=== PATIENT | female | born 1995 | race Caucasian/White ===

== ENCOUNTER 2018-11-08 13:15 | Emergency (ER) | payer OTHER ==
[2018-11-08] MEDS ORDERED: METOCLOPRAMIDE HCL INJ/PF 10 MG/2 ML SDV IV ONE (13:40)
[2018-11-08] MEDS ORDERED: DIPHENHYDRAMINE HCL 50 MG/ML VIAL IV ONE (13:40)
--- NOTE | 2018-11-08 13:42 | ER Document Report ---
ED Medical Screen (RME) - General Chief Complaint: Nausea/Vomiting Stated Complaint: VOMITING Time Seen by Provider: 11/08/18 13:34 Mode of Arrival: Ambulatory Information source: Patient Notes: 23-year-old female presents to ED for complaint of nausea or vomiting since Monday. She states she is 7 weeks at about 7:30 AM Monday she started vomiting. States she went to [facility] they gave her some Zofran crackers and sent her home with prescription for B6 and Unisom. She states none of this is stopping her vomiting and her she has not been able to eat anything since Monday. She states she continues to vomit and is becoming more dehydrated. She states she came to the emergency room because she went to the [facility] and they told her to come over and get fluids. Patient is alert oriented respirations regular and unlabored speaking in full sentences walks with a even steady gait. I have greeted and performed a rapid initial assessment of this patient. A comprehensive ED assessment and evaluation of the patient, analysis of test results and completion of medical decision making process will be conducted by an additional ED providers. Dictation of this chart was performed using voice recognition software; therefore, there may be some unintended grammatical errors. TRAVEL OUTSIDE OF THE [place] IN LAST 30 DAYS: No - Related Data Allergies/Adverse Reactions: No Known Allergies Allergy (Verified 11/08/18 13:15) Past Medical History Traumatic Medical History: Reports: Hx Traumatic Brain Injury - Immunizations Immunizations up to date: Yes Hx Diphtheria, Pertussis, Tetanus Vaccination: Yes Physical Exam - Vital signs Vitals: Temp Pulse Resp BP Pulse Ox 98.8 F 89 18 126/65 H 97 11/08/18 13:18 11/08/18 13:18 11/08/18 13:18 11/08/18 13:18 11/08/18 13:18 Course - Vital Signs Vital signs: Temp Pulse Resp BP Pulse Ox 98.8 F 89 18 126/65 H 97 11/08/18 13:18 11/08/18 13:18 11/08/18 13:18 11/08/18 13:18 11/08/18 13:18
[2018-11-08] MEDS: NORMAL SALINE 1000 ML 1,000 ML IV PRN ×2 (13:57→14:43)
[2018-11-08 14:26] LABS: APPEARANCE,URINE CLOUDY; BILIRUBIN,URINE NEGATIVE (NEGATIVE); COLOR,URINE AMBER; GLUCOSE, URINE NEGATIVE (NEGATIVE); KETONES,URINE 80 mg/dL (NEGATIVE); LEUKOCYTE ESTERASE,URINE TRACE (NEGATIVE); NITRITE,URINE NEGATIVE (NEGATIVE); PROTEIN,URINE 100 mg/dL (NEGATIVE); URINE SPECIFIC GRAVITY 1.029
[2018-11-08 14:29] LABS: ADD MANUAL MICROSCOPIC YES
[2018-11-08 14:32] LABS: ABSOLUTE LYMPHOCYTES (AUTO) 1.3 10^3/uL (0.5-4.7); ABSOLUTE MONOCYTES (AUTO) 0.5 10^3/uL (0.1-1.4); ABSOLUTE NEUT (AUTO) 6.4 10^3/uL (1.7-8.2); BASOPHILS % (AUTO) 0.2 % (0-2); EOSINOPHILS % (AUTO) 0.4 % (0-6); HEMATOCRIT 39.7 % (36.0-47.0); HEMOGLOBIN 13.6 g/dL (12.0-15.5); LYMPHOCYTES % (AUTO) 15.7 % (13-45); MEAN CORPUSCULAR HEMOGLOBIN 29.2 pg (27.0-33.4); MEAN CORPUSCULAR HGB CONC 34.4 g/dL (32.0-36.0); MEAN CORPUSCULAR VOLUME 85 fl (80-97); MONOCYTES % (AUTO) 5.5 % (3-13); PLATELET COUNT 220 10^3/uL (150-450); RED BLOOD COUNT 4.68 10^6/uL (3.72-5.28); RED CELL DISTRIBUTION WIDTH 12.4 % (11.5-14.0); SEGMENTED NEUTROPHILS % (AUTO) 78.2 % (42-78); TOTAL CELLS COUNTED % (AUTO) 100 %; WHITE BLOOD COUNT 8.2 10^3/uL (4.0-10.5)
[2018-11-08 14:37] LABS: BACTERIA,URINE 3+ /HPF
[2018-11-08 14:43] LABS: ALBUMIN 4.7 g/dL (3.5-5.0); ALKALINE PHOSPHATASE 56 U/L (38-126); ANION GAP 14 (5-19); ASPARTATE AMINO TRANSFERASE 22 U/L (14-36); BILIRUBIN,DIRECT 0.1 mg/dL (0.0-0.4); BILIRUBIN,TOTAL 0.5 mg/dL (0.2-1.3); BLOOD UREA NITROGEN 13 mg/dL (7-20); CALCIUM 9.8 mg/dL (8.4-10.2); CARBON DIOXIDE 27 mmol/L (22-30); CHLORIDE 98 mmol/L (98-107); GLUCOSE 93 mg/dL (75-110); POTASSIUM 3.8 mmol/L (3.6-5.0); TOTAL PROTEIN 7.4 g/dL (6.3-8.2)
--- NOTE | 2018-11-08 15:17 | RADIOLOGY REPORT (SQ) ---
EXAM DESCRIPTION: U/S OB TRANSVAG W/DOPPLER COMPLETED DATE/TIME: 11/08/2018 3:03 pm REASON FOR STUDY: early preg NV cramping COMPARISON: None. TECHNIQUE: Transvaginal static and realtime grayscale images acquired of the pelvis. Additional guru cted spectral and color Doppler images recorded. All images stored on PACs. bHCG: Pending. CLINICAL DATES: 7 weeks, 0 days LIMITATIONS: None. FINDINGS: FETUS: Single Living intrauterine . ULTRASOUND EGA: 6 weeks, 6 days ULTRASOUND ALLIE: 06/28/2019 EFW: Not applicable less than 20 weeks. CRL: 0.85 cm FHR: 130 beats per minute. UTERUS: No masses. No anomalies. CERVICAL LENGTH: 1.9 cm Closed. RIGHT ADNEXA: Normal ovary with normal vascular flow. Probable 2.1 cm corpus luteum of the right ova ry. Multiple small follicles. No adnexal free fluid. No adnexal masses. LEFT ADNEXA: Nonvisualized. FREE FLUID: None. OTHER: No other significant finding. IMPRESSION: Single intrauterine at sonographic gestational age of 6 weeks, 6 days. ALLIE . heart rate 130 bpm. Trimester of : First trimester - 0 to 13 weeks. TECHNICAL DOCUMENTATION: JOB ID: [id number] [employer]- All Rights Reserved rev Reading location - IP/workstation name: [email or web address]
--- NOTE | 2018-11-08 15:23 | ER Document Report ---
ED GI/ - General Chief Complaint: Nausea/Vomiting Stated Complaint: VOMITING Time Seen by Provider: 11/08/18 13:34 Primary Care Provider: BEATRIZ WICK MD [Primary Care Provider] - Follow up tomorrow Mode of Arrival: Ambulatory Information source: Patient Notes: Patient states that she is 7 weeks and has had nausea and vomiting for the past 3 days. Patient states she vomited 6 times today. Patient does report some cramping yesterday after vomiting although denies any abdominal cramping today. Patient denies any vaginal bleeding or discharge. TRAVEL OUTSIDE OF THE [place] IN LAST 30 DAYS: No - HPI Patient complains to provider of: , Vomiting. No: Abdominal pain Onset: Other - 3 days Timing/Duration: Persistent Quality of pain: No pain Pain Level: Denies Context: Sexual history: Active Associated symptoms: Nausea, Vomiting. denies: Diarrhea, Dizzy, Urinary hesitancy, Urinary frequency, Urinary retention, Urinary urgency, Vaginal discharge Exacerbated by: Denies Relieved by: Denies Similar symptoms previously: Yes Recently seen / treated by doctor: Yes - Related Data Allergies/Adverse Reactions: No Known Allergies Allergy (Verified 11/08/18 13:15) Past Medical History - General Information source: Patient Last Menstrual Period: 7 weeks - Social History Smoking Status: Former Smoker Frequency of alcohol use: None Drug Abuse: None Occupation: None Lives with: Spouse/Significant other Family History: CVA, DM, Hyperlipidemia, Hypertension. denies: Arthritis, CAD, COPD, Malignancy, Thyroid Disfunction Patient has suicidal ideation: No Patient has homicidal ideation: No - Medical History Medical History: Negative Renal/ Medical History: Denies: Hx Peritoneal Dialysis Traumatic Medical History: Reports: Hx Traumatic Brain Injury Surgical Hx: Negative - Immunizations Immunizations up to date: Yes Hx Diphtheria, Pertussis, Tetanus Vaccination: Yes Review of Systems - Review of Systems Constitutional: No symptoms reported. denies: Fever, Recent illness EENT: No symptoms reported Cardiovascular: No symptoms reported Respiratory: No symptoms reported. denies: Cough, Short of breath Gastrointestinal: Nausea, Vomiting. denies: Abdominal pain, Diarrhea Genitourinary: No symptoms reported. denies: Dysuria, Flank pain Female Genitourinary: . denies: Vaginal discharge, Vaginal bleeding Musculoskeletal: No symptoms reported. denies: Back pain Skin: No symptoms reported Hematologic/Lymphatic: No symptoms reported Neurological/Psychological: No symptoms reported Physical Exam - Vital signs Vitals: Temp Pulse Resp BP Pulse Ox 98.8 F 89 18 126/65 H 97 11/08/18 13:18 11/08/18 13:18 11/08/18 13:18 11/08/18 13:18 11/08/18 13:18 - General General appearance: Appears well, Alert In distress: None - HEENT Head: Normocephalic, Atraumatic Eyes: Normal Nasal: Normal Mouth/Lips: Normal Neck: Normal, Supple - Respiratory Respiratory status: No respiratory distress Chest status: Nontender Breath sounds: Normal. No: Rales, Rhonchi, Stridor, Wheezing Chest palpation: Normal - Cardiovascular Rhythm: Regular. No: Tachycardia Heart sounds: S1 appreciated, S2 appreciated Murmur: No - Abdominal Inspection: Normal Distension: No distension Bowel sounds: Normal Tenderness: Nontender. No: Tender Organomegaly: No organomegaly - Back Back: Normal, Nontender. No: CVA tenderness, Vertebra tenderness - Extremities General upper extremity: Normal inspection, Nontender, Normal strength General lower extremity: Normal inspection, Nontender, Normal strength - Neurological Neuro grossly intact: Yes Cognition: Normal [place] Coma Scale Eye Opening: Spontaneous Jonathan Coma Scale Verbal: Oriented [place] Coma Scale Motor: Obeys Commands Jonathan Coma Scale Total: 15 - Psychological Associated symptoms: Normal affect, Normal mood - Skin Skin Temperature: Warm Skin Moisture: Dry Skin Color: Normal Course - Vital Signs Vital signs: Temp Pulse Resp BP Pulse Ox 98.7 F 87 16 102/60 100 11/08/18 16:13 11/08/18 16:13 11/08/18 16:13 11/08/18 16:13 11/08/18 16:13 - Laboratory Result Diagrams: 11/08/18 14:05 11/08/18 14:05 Laboratory results interpreted by me: 11/08/18 11/08/18 11/08/18 14:05 14:05 14:05 Seg Neutrophils % 78.2 H Creatinine 0.50 L Beta HCG, Quant 23715.00 H Urine Protein 100 H Urine Ketones 80 H Urine Urobilinogen 2.0 H Ur Leukocyte Esterase TRACE H Urine Ascorbic Acid 40 H 11/08/18 17:22 Labs- Entire Visit 11/08/18 11/08/18 11/08/18 14:05 14:05 14:05 WBC 8.2 RBC 4.68 Hgb 13.6 Hct 39.7 MCV 85 MCH 29.2 MCHC 34.4 RDW 12.4 Plt Count 220 Seg Neutrophils % 78.2 H Lymphocytes % 15.7 Monocytes % 5.5 Eosinophils % 0.4 Basophils % 0.2 Absolute Neutrophils 6.4 Absolute Lymphocytes 1.3 Absolute Monocytes 0.5 Absolute Eosinophils 0.0 Absolute Basophils 0.0 Sodium 139.2 Potassium 3.8 Chloride 98 Carbon Dioxide 27 Anion Gap 14 BUN 13 Creatinine 0.50 L Est GFR ( Amer) > 60 Est GFR (Non-Af Amer) > 60 Glucose 93 Calcium 9.8 Total Bilirubin 0.5 Direct Bilirubin 0.1 Neonat Total Bilirubin Not Reportable Neonat Direct Bilirubin Not Reportable Neonat Indirect Bili Not Reportable AST 22 ALT 17 Alkaline Phosphatase 56 Total Protein 7.4 Albumin 4.7 Beta HCG, Quant 60676.00 H Total Beta HCG POSITIVE Urine Color JENNA Urine Appearance CLOUDY Urine pH 6.0 Ur Specific Fisher 1.029 Urine Protein 100 H Urine Glucose (UA) NEGATIVE Urine Ketones 80 H Urine Blood NEGATIVE Urine Nitrite NEGATIVE Urine Bilirubin NEGATIVE Urine Urobilinogen 2.0 H Ur Leukocyte Esterase TRACE H Urine RBC 1-5 Urine WBC 1-5 Ur Squamous Epith Cells MANY Urine Bacteria 3+ Urine Mucus 3+ Urine Ascorbic Acid 40 H - Diagnostic Test Radiology reviewed: Reports reviewed Discharge - Discharge Clinical Impression: Vomiting during , Dehydration UTI (urinary tract infection) Qualifiers: Urinary tract infection type: site unspecified Hematuria presence: without hematuria Qualified Code(s): N39.0 - Urinary tract infection, site not specified Condition: Stable Disposition: HOME, SELF-CARE Instructions: Cephalexin ([facility]), Intravenous (IV) Fluids ([facility]), Urinary Tract Infection ([facility]), Vomiting ([facility]) Additional Instructions: Return immediately for any new or worsening symptoms Followup with your primary care provider, call tomorrow to make a followup appointment Urine culture is pending, we will call if you need any different treatment Prescriptions: Cephalexin Monohydrate [Keflex 500 mg Capsule] 500 mg PO BID 5 Days capsule Referrals: BEATRIZ WICK MD [Primary Care Provider] - Follow up tomorrow
[2018-11-08 16:18] VITALS: BP 102/60
== END 2018-11-08 16:18 | disposition home or self-care (01) ==
LOC: ER 13:15
DX: O23.41 Unspecified infection of urinary tract in pregnancy, first trimester (principal); O21.9 Vomiting of pregnancy, unspecified; O26.891 Other specified pregnancy related conditions, first trimester; E86.0 Dehydration; R10.9 Unspecified abdominal pain; Z3A.01 Less than 8 weeks gestation of pregnancy; Z87.891 Personal history of nicotine dependence
CPT/HCPCS: 99284; 96361; 96374; 96375; 36415; 87086; 84702; 85025; 87088; 80053; 81001; 76817; 93976; J1200; J2765; J7030

== ENCOUNTER 2018-11-09 05:02 | Emergency (ER) | payer OTHER ==
[2018-11-09] MEDS ORDERED: ONDANSETRON HCL INJ/PF 4 MG/2 ML SDV IV ONE (05:50)
--- NOTE | 2018-11-09 05:54 | ER Document Report ---
ED Medical Screen (RME) - General Chief Complaint: Vomiting Stated Complaint: VOMITING,BACKACHE Time Seen by Provider: 11/09/18 05:42 Primary Care Provider: BEATRIZ WICK MD [Primary Care Provider] - Follow up as needed Notes: 23-year-old female who is a G1, P0 at 7 weeks presents the emergency department complaining of vomiting for the past week. Patient states that she has been having nonstop vomiting anytime she tries to eat or drink anything. States that she was treated with antinausea medication when she was here yesterday which worked temporarily and then wore off. Patient states that takin g Unisom and B6 did not help. Patient states that she has been vomiting since a few hours after she left this hospital yesterday. Admits mild lower abdominal cramping, denies vaginal discharge or vaginal bleeding. States she was diagnosed with urinary tract infection yesterday and prescribed Keflex. Denies any fevers. TRAVEL OUTSIDE OF THE [place] IN LAST 30 DAYS: No - Related Data Allergies/Adverse Reactions: No Known Allergies Allergy (Verified 11/09/18 05:04) Past Medical History Renal/ Medical History: Denies: Hx Peritoneal Dialysis Traumatic Medical History: Reports: Hx Traumatic Brain Injury - Immunizations Immunizations up to date: Yes Hx Diphtheria, Pertussis, Tetanus Vaccination: Yes Physical Exam - Vital signs Vitals: Temp Pulse Resp BP Pulse Ox 98.5 F 106 H 18 124/69 99 11/09/18 05:06 11/09/18 05:06 11/09/18 05:06 11/09/18 05:06 11/09/18 05:06 - Notes Notes: GENERAL: Alert, interacts well. No acute distress. HEAD: Normocephalic, atraumatic EYES: Pupils equal, round and reactive to light, extraocular movements intact. ENT: Oral mucosa moist, tongue midline. NECK: Full range of motion, supple, trachea midline. Trapezius muscles tender palpation bilaterally. LUNGS: Clear to auscultation bilaterally, no wheezes, rales or rhonchi, no respiratory distress. HEART: Tachycardic rate and rhythm, no murmurs, gallops, rubs. ABDOMEN: Soft, nontender, nondistended, bowel sounds present in all 4 quadrants. EXTREMITIES: Moves all 4 extremities spontaneously. No cyanosis. NEUROLOGICAL: Alert and oriented x3, normal speech. PSYCH: Normal mood, normal affect. SKIN: Warm, Dry, normal turgor, no rashes or lesions noted. Course - Vital Signs Vital signs: Temp Pulse Resp BP Pulse Ox 98.5 F 106 H 18 124/69 99 11/09/18 05:06 11/09/18 05:06 11/09/18 05:06 11/09/18 05:06 11/09/18 05:06 Doctor's Discharge - Discharge Referrals: BEATRIZ WICK MD [Primary Care Provider] - Follow up as needed
[2018-11-09] MEDS: RINGERS SOLUTION,LACTATED 1,000 ML IV PRN ×2 (06:13→07:26)
[2018-11-09 06:29] LABS: ABSOLUTE LYMPHOCYTES (AUTO) 1.3 10^3/uL (0.5-4.7); ABSOLUTE MONOCYTES (AUTO) 0.6 10^3/uL (0.1-1.4); ABSOLUTE NEUT (AUTO) 8.5 10^3/uL (1.7-8.2); BASOPHILS % (AUTO) 0.2 % (0-2); EOSINOPHILS % (AUTO) 0.4 % (0-6); HEMATOCRIT 36.5 % (36.0-47.0); HEMOGLOBIN 12.7 g/dL (12.0-15.5); LYMPHOCYTES % (AUTO) 12.7 % (13-45); MEAN CORPUSCULAR HEMOGLOBIN 29.4 pg (27.0-33.4); MEAN CORPUSCULAR HGB CONC 34.9 g/dL (32.0-36.0); MEAN CORPUSCULAR VOLUME 84 fl (80-97); MONOCYTES % (AUTO) 5.9 % (3-13); PLATELET COUNT 199 10^3/uL (150-450); RED BLOOD COUNT 4.33 10^6/uL (3.72-5.28); RED CELL DISTRIBUTION WIDTH 12.3 % (11.5-14.0); SEGMENTED NEUTROPHILS % (AUTO) 80.8 % (42-78); TOTAL CELLS COUNTED % (AUTO) 100 %; WHITE BLOOD COUNT 10.5 10^3/uL (4.0-10.5)
[2018-11-09 06:39] LABS: APPEARANCE,URINE SLIGHTLY-CLOUDY; BILIRUBIN,URINE NEGATIVE (NEGATIVE); COLOR,URINE YELLOW; GLUCOSE, URINE NEGATIVE (NEGATIVE); KETONES,URINE 80 mg/dL (NEGATIVE); LEUKOCYTE ESTERASE,URINE NEGATIVE (NEGATIVE); NITRITE,URINE NEGATIVE (NEGATIVE); PROTEIN,URINE NEGATIVE (NEGATIVE); URINE SPECIFIC GRAVITY 1.016; UROBILINOGEN,URINE NEGATIVE mg/dL (<2.0)
[2018-11-09 06:40] LABS: ALBUMIN 4.1 g/dL (3.5-5.0); ALKALINE PHOSPHATASE 53 U/L (38-126); ANION GAP 9 (5-19); ASPARTATE AMINO TRANSFERASE 17 U/L (14-36); BILIRUBIN,DIRECT 0.3 mg/dL (0.0-0.4); BILIRUBIN,TOTAL 0.5 mg/dL (0.2-1.3); BLOOD UREA NITROGEN 7 mg/dL (7-20); CALCIUM 9.4 mg/dL (8.4-10.2); CARBON DIOXIDE 25 mmol/L (22-30); CHLORIDE 104 mmol/L (98-107); GLUCOSE 102 mg/dL (75-110); POTASSIUM 3.3 mmol/L (3.6-5.0); TOTAL PROTEIN 6.8 g/dL (6.3-8.2)
[2018-11-09 06:46] LABS: ADD MANUAL MICROSCOPIC YES
[2018-11-09 06:47] LABS: BACTERIA,URINE 1+ /HPF
[2018-11-09] MEDS ORDERED: ACETAMINOPHEN 325 MG TABLET PO ONE (07:07)
[2018-11-09] MEDS ORDERED: PROMETHAZINE HCL 25 MG SUPP (4 SUPP/ER DISP) PR ONE (07:09)
--- NOTE | 2018-11-09 07:14 | ER Document Report ---
ED General - General Chief Complaint: Vomiting Stated Complaint: VOMITING,BACKACHE Time Seen by Provider: 11/09/18 05:42 Primary Care Provider: BEATRIZ WICK MD [Primary Care Provider] - Follow up as needed TRAVEL OUTSIDE OF THE [place] IN LAST 30 DAYS: No - HPI Notes: Patient is a G1, P0 at approximately 7 weeks gestation who presents to the emergency department for evaluation of intractable vomiting. She states her emesis is yellow and clear. She is still urinating. She states now she is having pain in her shoulders, jaw, anterior neck. She denies any abdominal pain. No vaginal bleeding. She is actually been seen multiple times, both at this ED as well as at [facility]. She actually has a prescription for Phenergan suppositories, as called in by her OB, but she has not yet filled them. She describes her pain as a soreness. She also has pain in her lower back. No urinary symptoms. No bowel or bladder incontinence, no saddle anesthesia, no focal numbness or weakness. - Related Data Allergies/Adverse Reactions: No Known Allergies Allergy (Verified 11/09/18 05:04) Home Medications: vitamin Past Medical History - General Information source: Patient - Social History Smoking Status: Never Smoker Chew tobacco use (# tins/day): No Frequency of alcohol use: pt denies since finding out she was Drug Abuse: None Family History: CVA, DM, Hyperlipidemia, Hypertension. denies: Arthritis, CAD, COPD, Malignancy, Thyroid Disfunction Patient has suicidal ideation: No Patient has homicidal ideation: No Renal/ Medical History: Denies: Hx Peritoneal Dialysis Traumatic Medical History: Reports: Hx Traumatic Brain Injury - Immunizations Immunizations up to date: Yes Hx Diphtheria, Pertussis, Tetanus Vaccination: Yes Review of Systems - Review of Systems Constitutional: No symptoms reported EENT: No symptoms reported Cardiovascular: No symptoms reported Respiratory: No symptoms reported Gastrointestinal: See HPI Genitourinary: No symptoms reported Female Genitourinary: See HPI Musculoskeletal: See HPI Skin: No symptoms reported Neurological/Psychological: No symptoms reported Physical Exam - Vital signs Vitals: Temp Pulse Resp BP Pulse Ox 98.5 F 106 H 18 124/69 99 11/09/18 05:06 11/09/18 05:06 11/09/18 05:06 11/09/18 05:06 11/09/18 05:06 - Notes Notes: Vital signs reviewed, please refer to chart. Head is normocephalic, atraumatic. Pupils equal round, reactive to light. Neck is supple without meningismus. Heart is regular rate and rhythm. Lungs are clear to auscultation bilaterally. Abdomen is soft, nontender, normoactive bowel sounds throughout. Extremities without cyanosis, clubbing. Posterior calves are nontender. Peripheral pulses are equal. Skin is warm and dry. Patient is awake, alert, neurological exam is nonfocal. Course - Re-evaluation Re-evalutation: 11/09/18 07:12 Patient presents emergency department for evaluation. Laboratory investigations were obtained, patient was administered fluids and Zofran. She did have a small localized reaction to the Zofran. This is the second time she received it. I told the patient that she should watch closely, consider discontinuing the use of Zofran. At home, patient is only been trying vitamin B6, Unisom. She was written a prescription for Zofran but it was nervous to take it, has only taken it twice. She has not yet filled the prescription for Phenergan suppositories from her OB. Here her potassium was a very mildly low. I am not inclined to orally replace this at this time. She is given instructions to snack on foods with high potassium content. She is amenable to this plan. Otherwise we will send her home with a to go pack of Phenergan suppositories. She is to take Tylenol as needed for pain at home. She is given Tylenol here. She is to return to the ED with worsening or concerning symptoms of any sort. - Vital Signs Vital signs: Temp Pulse Resp BP Pulse Ox 98.5 F 106 H 18 113/61 100 11/09/18 05:06 11/09/18 05:06 11/09/18 05:06 11/09/18 08:01 11/09/18 08:01 - Laboratory Result Diagrams: 11/09/18 06:08 11/09/18 06:08 Laboratory results interpreted by me: 11/09/18 11/09/18 11/09/18 06:08 06:08 06:22 Seg Neutrophils % 80.8 H Lymphocytes % 12.7 L Absolute Neutrophils 8.5 H Potassium 3.3 L Creatinine 0.43 L Urine Ketones 80 H Discharge - Discharge Clinical Impression: Vomiting during , Dehydration, Hypokalemia Condition: Stable Disposition: HOME, SELF-CARE Instructions: Antinausea Medication ([facility]), Hypokalemia ([facility]), Vomiting ([facility]) Additional Instructions: Small, frequent sips of fluids. Use Phenergan suppositories as directed at h ome, please watch for dizziness and drowsiness with these medications. Try to snack on high potassium foods. Follow-up with your OB next week. If you develop abdominal pain, vaginal bleeding, or any other new or concerning symptoms, return immediately to the emergency department for evaluation. Referrals: BEATRIZ WICK MD [Primary Care Provider] - Follow up as needed
[2018-11-09 09:14] VITALS: BP 115/60
== END 2018-11-09 09:13 | disposition home or self-care (01) ==
LOC: ER 05:02
DX: O21.9 Vomiting of pregnancy, unspecified (principal); T42.6X6A Underdosing of other antiepileptic and sedative-hypnotic drugs, initial encounter; Z91.128 Patient's intentional underdosing of medication regimen for other reason; Z91.14 Patient's other noncompliance with medication regimen; O99.280 Endocrine, nutritional and metabolic diseases complicating pregnancy, unspecified trimester; E87.6 Hypokalemia; E86.0 Dehydration; O99.89 Other specified diseases and conditions complicating pregnancy, childbirth and the puerperium; M25.511 Pain in right shoulder; M25.512 Pain in left shoulder; R68.84 Jaw pain; M54.2 Cervicalgia; M54.5 Low back pain; O9A.219 Injury, poisoning and certain other consequences of external causes complicating pregnancy, unspecified trimester; T42.6X5A Adverse effect of other antiepileptic and sedative-hypnotic drugs, initial encounter; Y92.239 Unspecified place in hospital as the place of occurrence of the external cause; Z3A.00 Weeks of gestation of pregnancy not specified; Z79.899 Other long term (current) drug therapy
CPT/HCPCS: 99284; 96361; 96374; 36415; 87086; 83690; 85025; 80053; 81001; J3490; J2405; J7120